=== PATIENT | male | born 1945 | race Caucasian/White ===

== ENCOUNTER 2023-01-31 10:10 | Outpatient (CLI) | payer MEDICARE, BC, SELFPAY | END 2023-01-31 10:11 | disposition home or self-care (01) | PROVIDERS: PCP Family Medicine; Visit Provider Family Medicine | DX: Z00.00 Encounter for general adult medical examination without abnormal findings (principal); I10 Essential (primary) hypertension; Z11.59 Encounter for screening for other viral diseases | CPT/HCPCS: 80053; 86803 ==

== ENCOUNTER 2024-03-15 11:29 | Outpatient (CLI) | payer MEDICARE, BC, SELFPAY | END 2024-03-15 11:30 | disposition home or self-care (01) | PROVIDERS: PCP Family Medicine; Visit Provider Family Medicine | DX: E11.9 Type 2 diabetes mellitus without complications (principal); E03.9 Hypothyroidism, unspecified; E78.5 Hyperlipidemia, unspecified; I10 Essential (primary) hypertension; D47.2 Monoclonal gammopathy; Z12.5 Encounter for screening for malignant neoplasm of prostate | CPT/HCPCS: 80053; 82043; 82570; 84443; G0103 ==

== ENCOUNTER 2024-05-23 11:39 | Outpatient (CLI) | payer MEDICARE, BC, SELFPAY | END 2024-05-23 11:40 | disposition home or self-care (01) | PROVIDERS: PCP Family Medicine; Visit Provider Family Medicine | DX: E11.9 Type 2 diabetes mellitus without complications (principal); I10 Essential (primary) hypertension; E03.9 Hypothyroidism, unspecified; Z13.21 Encounter for screening for nutritional disorder | CPT/HCPCS: 80053; 82043; 82570; 83735; 84439; 84443 ==

== ENCOUNTER 2024-09-16 09:43 | Outpatient (CLI) | payer MEDICARE, BC, SELFPAY | END 2024-09-16 09:44 | disposition home or self-care (01) | PROVIDERS: PCP Family Medicine; Visit Provider Family Medicine | DX: E03.9 Hypothyroidism, unspecified (principal); D47.2 Monoclonal gammopathy; I10 Essential (primary) hypertension | CPT/HCPCS: 80048; 82784; 83520; 84155; 84165; 84443; 86334 ==

== ENCOUNTER 2025-02-10 08:54 | Outpatient (CLI) | payer MEDICARE, BC, SELFPAY ==
[2025-02-10 13:35] LABS: Albumin* 4.2 g/dL (3.3-5.0); Chloride* 101 mmol/L (96-114); Potassium* 4.2 mmol/L (3.6-5.1); Sodium* 137 mmol/L (135-149)
[2025-02-10 13:38] LABS: Anion Gap 8 mEq/L (7-15); Blood Urea Nitrogen* 25 mg/dL (7-30); Calcium* 9.3 mg/dL (8.4-10.6); Carbon Dioxide* 28 mmol/L (20-32); Creatinine* 1.4 mg/dL (0.5-1.5); Estimated Glomerular Filt Rate 51 ml/min; Glucose* 157 mg/dL (60-115)
== END 2025-02-10 08:55 | disposition home or self-care (01) ==
LOC: NPINS 08:55
PROVIDERS: PCP Family Medicine; Visit Provider Internal Medicine Nephrology
DX: I12.9 Hypertensive chronic kidney disease with stage 1 through stage 4 chronic kidney disease, or unspecified chronic kidney disease (principal); N18.31 Chronic kidney disease, stage 3a
CPT/HCPCS: 80069

== ENCOUNTER 2025-03-07 13:32 | Outpatient (CLI) | payer MEDICARE, BC, SELFPAY | END 2025-03-07 13:33 | disposition home or self-care (01) | PROVIDERS: PCP Family Medicine; Visit Provider Family Medicine | DX: E03.9 Hypothyroidism, unspecified (principal); E78.5 Hyperlipidemia, unspecified; I10 Essential (primary) hypertension; R41.3 Other amnesia | CPT/HCPCS: 80053; 80061; 82607; 84443 ==

== ENCOUNTER 2025-03-20 13:24 | Outpatient (CLI) | payer MEDICARE, BC, SELFPAY ==
--- NOTE | 2025-03-20 13:45 | MR_ITS ---
Patient: EWELINA SILVER Facility:?[facility] Patient ID:?[id number] Site Patient ID:?[id number]. Site :?[id number] Study:?MRI-Head W/O-03/20/2025 2:52:49 PM Ordering Physician:Lcuy Rivero Final Report: Indication: Cognitive symptoms. Technique: Multiplanar, multisequence MRI of the brain was performed without intravenous contrast. Comparison: None relevant available. Findings: Slight thinning of the corpus callosum. The pituitary gland clivus appear intact. Mild degenerative change visualized upper cervical spine. There is no restricted diffusion. No intracranial hemorrhage. The ventricles are proportionate to the cerebral sulci. The 4th ventricle appears midline. The basal cisterns appear patent. No abnormal extra-axial fluid collection identified. Moderate parenchymal volume loss. Scattered T2 FLAIR hyperintense foci within the subcortical and periventricular white matter, favored to represent chronic ischemic microvascular disease. There is no intracranial mass, abnormal mass-effect or midline shift identified. Major intracranial vascular flow voids appear grossly intact. Thinning of the ocular lenses. Mild paranasal sinus mucosal disease. Impression: 1. No acute intracranial process. 2. Moderate parenchymal volume loss, with mild chronic ischemic microvascular disease. Dictated by Ryan Reddy MD @ 03/20/2025 3:48:13 PM Signed by:?Ryan Reddy MD @03/20/2025 3:48:13 PM (Electronic Signature)
== END 2025-03-20 13:25 | disposition home or self-care (01) ==
PROVIDERS: PCP Family Medicine; Visit Provider Family Medicine
DX: R41.89 Other symptoms and signs involving cognitive functions and awareness (principal); I67.82 Cerebral ischemia
CPT/HCPCS: 70551

== ENCOUNTER 2025-04-02 09:51 | Outpatient (CLI) | payer MEDICARE, BC, SELFPAY ==
--- NOTE | 2025-04-08 12:40 | W.PM.SLEEP ---
Sleep Study Details Details Interpreting Provider: Apple Date of Sleep Study: 04/02/25 Sleep Study Details: STUDY TYPE:? home unattended ? BMI:? 25.77 ORDERING PROVIDER:? Apple INDICATION:? concern about sleep apnea ? SLEEP SUMMARY:? 518 minutes monitored RESPIRATORY SUMMARY:? AHI per CMS guideline 25.5. Central apnea index is 15.4 Low oxygen 76 1.9% of study oxygen less than 90% Snoring 100% PERIODIC LIMB MOVEMENTS OF SLEEP:? not recorded CARDIAC:? range 40-76, mean 62.8 beats per minute IMPRESSION:? mixed central and obstructive sleep apnea with overall AHI of 25.5. Bradycardia noted during study with a heart rate as low as 40. This was also noted during time in bed prior to study. RECOMMENDATION: Would recommend an in-lab titration. He may require ASV which would require that he have an echocardiogram prior to any ASV titration to ensure normal ejection fraction. Will refer back to his primary regard
== END 2025-04-02 09:52 | disposition home or self-care (01) ==
LOC: SLEEP 09:52
PROVIDERS: PCP Family Medicine; Visit Provider Otolaryngology
DX: G47.33 Obstructive sleep apnea (adult) (pediatric) (principal)
CPT/HCPCS: 95806

== ENCOUNTER 2025-04-18 09:02 | Outpatient (CLI) | payer MEDICARE, BC, SELFPAY | END 2025-04-18 09:03 | disposition home or self-care (01) | LOC: NFLDREF 04-21 12:21 | PROVIDERS: PCP Family Medicine; Referring Provider Family Medicine; Visit Provider Family Medicine | DX: E03.9 Hypothyroidism, unspecified (principal) | CPT/HCPCS: 84443 ==

== ENCOUNTER 2025-05-21 12:40 | Outpatient (CLI) | payer MEDICARE, BC, SELFPAY | END 2025-05-21 12:41 | disposition home or self-care (01) | LOC: RAD 12:43 | PROVIDERS: PCP Family Medicine; Visit Provider Family Medicine | DX: I10 Essential (primary) hypertension (principal); I51.7 Cardiomegaly; I34.0 Nonrheumatic mitral (valve) insufficiency; I07.1 Rheumatic tricuspid insufficiency; R41.89 Other symptoms and signs involving cognitive functions and awareness; I21.9 Acute myocardial infarction, unspecified | CPT/HCPCS: 93306 ==

== ENCOUNTER 2025-05-30 09:06 | Outpatient (CLI) | payer MEDICARE, BC, SELFPAY | END 2025-05-30 09:07 | disposition home or self-care (01) | LOC: NFLDREF 06-04 18:11 | PROVIDERS: PCP Family Medicine; Referring Provider Family Medicine; Visit Provider Family Medicine | DX: E03.9 Hypothyroidism, unspecified (principal) | CPT/HCPCS: 84439; 84443 ==

== ENCOUNTER 2025-06-13 07:41 | Outpatient (CLI) | payer MEDICARE, BC, SELFPAY | END 2025-06-13 07:42 | disposition home or self-care (01) | LOC: NFLDREF 06-18 09:02 | PROVIDERS: PCP Family Medicine; Referring Provider Family Medicine; Visit Provider Family Medicine | DX: E03.9 Hypothyroidism, unspecified (principal); Z00.00 Encounter for general adult medical examination without abnormal findings; Z13.29 Encounter for screening for other suspected endocrine disorder | CPT/HCPCS: 80053; 84439; 84443 ==

== ENCOUNTER 2025-06-18 20:43 | Outpatient (CLI) | payer MEDICARE, BC, SELFPAY ==
--- NOTE | 2025-06-24 11:54 | W.PM.SLEEP ---
Sleep Study Details Details Interpreting Provider: Apple Date of Sleep Study: 06/18/25 Sleep Study Details: STUDY TYPE:? Hospital-based, attended, CPAP titration ? BMI:? 28.2 ORDERING PROVIDER:? Apple INDICATION:? Previous positive study with a large % of central apnea ? SLEEP SUMMARY:? 196.5 minutes total sleep time RESPIRATORY SUMMARY:? Note that all numbers are post treatment Overall AHI for this study per CMS criteria 12.8, per rule 1A 32.7. Supine REM AHI post treatment 36.5. 0.4 minutes oxygen between 80 and 88%. Minimum oxygen was 85% the patient was titrated initially with CPAP and then bilevel. REM stage sleep was obtained at a pressure of 14 but only 7 minutes. The entire study was done supine. The patient essentially failed CPAP titration and then was advanced to bilevel and got as high as 19/14 which still had an elevated AHI. The best pressure on this study was 15 which decreased AHI to 4.4 but no REM sleep was seen. PERIODIC LIMB MOVEMENTS OF SLEEP:? Index post treatment 3.1, index with arousal 0.3 CARDIAC:? Awake 65, asleep 59. PVCs and PACs were noted IMPRESSION:? For obstructive sleep apnea. The central apnea did not appear to be a huge issue during the titration study. There were only 11 central apneas. However CPAP failed to could adequately control the apnea. The patient was advanced to bilevel but that was not really effective either. RECOMMENDATION: Auto bilevel tender 20 with close follow-up.
== END 2025-06-18 20:44 | disposition home or self-care (01) ==
PROVIDERS: PCP Family Medicine; Visit Provider Otolaryngology
DX: G47.30 Sleep apnea, unspecified (principal); G47.10 Hypersomnia, unspecified; R06.83 Snoring
CPT/HCPCS: 95811